=== PATIENT | female | born 1975 | race Caucasian/White ===

== ENCOUNTER 2016-04-19 07:56 | Day surgery (SDC) | payer BC ==
[~2016-04-19] VITALS: Ht 154.9 cm; Wt 60.0 kg
[~2016-04-19 07:56] MED LIST: BUPIVACAINE/EPINEPHRINE 0.5%-1:200,000 (MARCAINE) 30 ML VIAL INJ ONE; LACTATED RINGERS 1,000 ML IV SCH; NORE-108 PO; ONDA4TAB8 PO; SODIUM CHLORIDE FLUSH 3 ML SYR IV PRN; TRM50T PO
[2016-04-19] MEDS ORDERED: MIDAZOLAM 2 MG/2 ML (VERSED) VIAL ONE (09:06)
[2016-04-19] MEDS ORDERED: ALFENTANIL 500 MCG/ML (ALFENTA) 5 ML AMP IV ONE (09:06)
[2016-04-19] MEDS ORDERED: PROPOFOL 20 ML IV ONE (09:08)
[2016-04-19] MEDS ORDERED: DEXAMETHASONE 10 MG/ML (DECADRON) VIAL ONE (09:47)
[2016-04-19] MEDS ORDERED: diphenhydrAMINE 50 MG/ML INJ (BENADRYL) ONE (10:18)
[2016-04-19] MEDS ORDERED: METOCLOPRAMIDE 10 MG/2 ML (REGLAN) VIAL ONE (10:18)
[2016-04-19] MEDS ORDERED: ONDANSETRON 2 MG/ML (Z0FRAN) 2 ML VIAL ONE (10:18)
[2016-04-19] MEDS ORDERED: KETOROLAC 60 MG/2 ML (TORADOL) VIAL IM ONE (10:39)
[2016-04-19] MEDS ORDERED: morphine INJ 4 MG/ML 1 ML SYRINGE ONE (11:00)
[2016-04-19 11:17] VITALS: BP 157/88
--- NOTE | 2016-04-19 11:17 | OPERATIVE REPORT ---
DATE OF OPERATION: 04/19/2016 PRE-OPERATIVE DIAGNOSIS: Symptomatic cholelithiasis POST-OPERATIVE DIAGNOSIS: Symptomatic cholelithiasis OPERATIVE PROCEDURE: Laparoscopic cholecystectomy with intraoperative cholangiogram SURGEON: Antione Lozada MD DISABILITY COORDINATOR: JOSEY Almaraz and DEMETRICE Waddell ANESTHESIA: General endotracheal anesthetic INDICATIONS: The patient is a 41-year-old referred by Monique Clay APRN in [place] with intermittent abdominal pain associated with gallstones seen on imaging. She presents today for elective cholecystectomy for relief of these symptoms. DESCRIPTION OF PROCEDURE: The patient was informed of the risks and benefits and agreed to proceed. She was taken to the operating room and placed supine on a standard operating table. She was administered general endotracheal anesthetic. When properly anesthetized her abdomen was prepped and draped in the standard sterile fashion. The curvilinear incision was made just below the umbilicus and the open technique was used to access the peritoneal cavity with the 10-mm trocar. CO2 was insufflated to 15 mmHg. A 10-mm Olympus 3D Endoeye laparoscope was used. Under direct vision a subxiphoid 5-mm port and two subcostal right-sided 5-mm ports were placed. The patient was placed in reverse Trendelenburg position and rotated slightly to the left. The gallbladder was not particularly distended or thick, and in fact, the wall was quite thin. The peritoneum just below the infundibulum was opened with cautery and the triangle of Calot was dissected free. This was well visualized and contained just the cystic artery as the only tubular structure entering the gallbladder within that triangle. The cystic duct was clipped proximally and a cholangiogram was obtained through the duct that showed normal intrahepatic and extrahepatic ducts with no extravasation or filling defects. The catheter was removed from the cystic duct. The cystic duct was then clipped twice distally and divided between the most proximal clips. There was some leak of bile from the proximal duct and one additional clip was placed to completely occlude the duct next to the gallbladder to stop that leak. The cystic artery was clipped twice proximally, once distally and divided between the distal clips. The gallbladder was then removed from its attachments to the liver with gentle traction and cautery. There was a small hole that was created in the gallbladder during the dissection and some bile spilled, which was easily suctioned. There was no spillage of any stones. The gallbladder was removed using an endobag through the umbilical port site. The abdomen was irrigated above and below the right lobe of the liver and this was aspirated. The clips were intact on the cystic duct and the cystic artery and there was no bleeding at the gallbladder fossa. The upper trocars were removed under direct vision and no bleeding was seen from the abdominal wall. The CO2 was let out of the abdomen and the umbilical port was removed. The stay sutures were tied and one additional #0 Vicryl suture was placed at the fascia at the umbilical incision to completely close that defect. The skin was closed at all 4 incisions with subcuticular 4-0 Monocryl and dressings were applied. The patient tolerated the procedure without complications and went to recovery in stable condition.
[2016-04-19] MEDS ORDERED: ONDANSETRON 2 MG/ML (Z0FRAN) 2 ML VIAL IV PRN (11:25)
[2016-04-19] MEDS ORDERED: KETOROLAC 30 MG/ML (TORADOL) 1 ML VIAL IV PRN (11:25)
[2016-04-19] MEDS ORDERED: PROMETHAZINE HCL INJ 25 MG in SODIUM CHLORIDE 25 ML IV PRN (11:25)
[2016-04-19] MEDS ORDERED: METOCLOPRAMIDE 10 MG/2 ML (REGLAN) VIAL IV PRN (11:25)
[2016-04-19] MEDS ORDERED: morphine INJ 4 MG/ML 1 ML SYRINGE IV PRN (11:25)
[2016-04-19] MEDS ORDERED: ACETAMINOPHEN/CODEINE 300MG/30 MG (TYLENOL #3) TABLET PO PRN (11:25)
[2016-04-19 11:32] VITALS: BP 155/71
[2016-04-19 11:47] VITALS: BP 145/82
--- NOTE | 2016-04-19 12:12 | Diagnostic Imaging Report ---
INDICATION: Abdominal pain. 12 seconds of fluoroscopy was used in surgery for cholecystectomy. Documented image from the procedure shows cannulation of the cystic duct. There is an oval filling defect in the midcommon bile duct segment. Contrast appears to be passing into the duodenum. IMPRESSION: Oval filling defect in the common bile duct could be choledocholithiasis versus air bubble. Dictated by: Dictated on workstation # [id number]
[2016-04-19 12:29] VITALS: BP 128/76
== END 2016-04-19 12:31 | disposition home or self-care (01) ==
LOC: ASC 07:56
PROVIDERS: ATTEND Surgery
DX: K80.10 Calculus of gallbladder with chronic cholecystitis without obstruction (principal); E21.2 Other hyperparathyroidism; Z87.442 Personal history of urinary calculi
CPT/HCPCS: 47563; 74300; J1100; J1200; J1885; J2250; J7120; Q9967